=== PATIENT | male | born 1950 | race Caucasian/White ===

== ENCOUNTER 2019-07-05 14:49 | Outpatient (CLI) | payer MEDICARE ==
--- NOTE | 2019-07-05 16:51 | RAD ---
CERVICAL SPINE: 07/05/19 Five views. HISTORY: Neck pain. Cervical spondylosis. Lateral view obtained in neutral, flexion and extension. Postoperative changes are seen with anterior plate and screws transfixing C5, C6 and C7 with interbod y fusion at these levels. Mild anterolisthesis at C3-4 measured at 2 to 3 mm and minimal anterolisthesis at C4-5. Disc narrowin g at C7-T1 with mild anterolisthesis. Anterolisthesis at C3-4 does not significantly change with flexion or extension. Anterolisthesis at C 7-T1 is not significantly changed. IMPRESSION: Degenerative and postoperative changes of the cervical spine as described. POS: CHRIS
== END 2019-07-05 14:50 | disposition home or self-care (01) ==
LOC: TBSIIMAG 14:49
PROVIDERS: ATTEND Neurological Surgery
DX: M47.812 Spondylosis without myelopathy or radiculopathy, cervical region (principal); Z98.890 Other specified postprocedural states
CPT/HCPCS: 72050

== ENCOUNTER 2019-07-30 07:34 | Inpatient (IN) | payer MEDICARE ==
[2019-07-27 15:05] VITALS: BMI 28.3
[2019-07-30 08:39] LABS: Hemoglobin 14.3 g/dL (14.0-18.0); Mean Corpuscular HGB CONC 34.1 g/dL (32.0-36.0); Mean Corpuscular Hemoglobin 31.3 pg (27.0-31.0); Mean Corpuscular Volume 91.8 fL (78.0-98.0); Mean Platelet Volume 9.3 fL (7.4-10.4); Platelet Count 198 thou/uL (130-400); RBC Distribution Width 11.9 % (11.5-14.5); Red Blood Cell (RBC) Count 4.57 mill/uL (4.70-6.10); White Blood Cell (WBC) Count 3.9 thou/uL (4.8-10.8)
[2019-07-30 08:47] LABS: Anion Gap 11 mmol/L (10-20); BUN (Urea Nitrogen) 12 mg/dL (8.4-25.7); Calc. Creatinine Clearance 112 mL/min (70-130); Calcium 9.1 mg/dL (7.8-10.44); Carbon Dioxide 26 mmol/L (23-31); Chloride 107 mmol/L (98-107); Estimated GFR-MDRD 87; Glucose 94 mg/dL (80-115); Potassium 4.1 mmol/L (3.5-5.1); Sodium 140 mmol/L (136-145)
[2019-07-30] MEDS ORDERED: Sodium Chloride 0.9% 10 ML ONE (09:28)
[2019-07-30] MEDS ORDERED: Fentanyl 100 MCG/2 ML VIAL ONE ×2 (09:47→13:01)
[2019-07-30] MEDS ORDERED: Glycopyrrolate 0.2 MG/ML 5 ML SYRINGE ONE (10:59)
[2019-07-30] MEDS ORDERED: Dexamethasone 20 MG/5 ML VIAL ONE (10:59)
[2019-07-30] MEDS ORDERED: ePHEDrine/0.9% NaCl/PF SYRINGE 50 mg/10 ml ONE (10:59)
[2019-07-30] MEDS ORDERED: PROPOFOL 200 MG/20 ML VIAL ONE (10:59)
[2019-07-30] MEDS ORDERED: Lidocaine 1% PF 5 ML VIAL ONE (10:59)
[2019-07-30] MEDS ORDERED: Rocuronium Bromide 10 MG/ML (10ML VIAL) ONE (10:59)
[2019-07-30] MEDS ORDERED: Tamsulosin HCl 0.4 MG CAP ONE (12:19)
--- NOTE | 2019-07-30 13:18 | OP ---
DATE OF PROCEDURE: 07/30/2019 HEAD OF TRANSPORT LOGISTICS: Sebastian Tao PA-C PROCEDURES PERFORMED: Attempted removal of hardware, C5 through C7; expiration of spinal fusion, C5 through C7; anterior cervical diskectomy, C7-T1; interbody arthrodesis, intervertebral biomechanical device, local morselized autograft, and demineralized bone matrix. DESCRIPTION OF PROCEDURE: The patient was brought to the operating room and intubated. He was positioned supine with head in modest extension on gel-filled donut. A longitudinal incision was made in the right and dissected medial to the sternocleidomastoid muscle, identified the anterior cervical spine and the previous plate. We exposed the C7-T1 region. The plate was fully invested by bone. We debrided bone with a combination of rongeurs and a drill. Three of the screws were able to be removed with some difficulty. Two of the screws were sewn invested by bone that the bone could not be removed from the locking screw heads. We attempted eventually to drill this away, but eventually the morphology of the locking screw heads could not be maintained and the screws could not be removed. The left-sided C5 screw had an unusual angle as although there had been some migration and angulation. This was also invested by bone, but would have also been exceptionally difficult to remove. We next attempted to drill off the lower third of the plate between C6 and C7, but the drilling process created too much metallic fragmentation and heat and sparking and I aborted this rapidly. We next placed distraction from C7-T1 using operative microscope and microdissection techniques, completely removed the intervertebral disk dissecting below the post longitudinal ligament, decompressing the spinal cord to the level of the dura. A complete decompression was achieved. We next attempted to place a new plate at C7-T1, but there was not enough of the C7 body to access for adequate placement of a plate despite multiple attempts. We therefore aborted placing the plate at C7-T1. The wound was extensively irrigated. MAC hemostasis was secured. The wound was closed in anatomic layers over drain. Job ID: [id number]
[2019-07-30] MEDS ORDERED: Acetaminophen 650 MG Suppository PR PRN (13:50)
[2019-07-30] MEDS ORDERED: Promethazine HCl 25 MG/ML VIAL IM PRN (13:50)
[2019-07-30] MEDS ORDERED: diphenhydrAMINE 25 MG CAP PO PRN (13:50)
[2019-07-30] MEDS ORDERED: Ondansetron PF 4 MG/2 ML Vial IVP PRN (13:50)
[2019-07-30] MEDS ORDERED: Acetaminophen 325 MG TAB PO PRN (13:50)
[2019-07-30] MEDS ORDERED: Morphine 4 MG/ML VIAL SLOW IVP PRN (13:50)
[2019-07-30] MEDS ORDERED: diphenhydrAMINE 50 MG/ML VIAL IVP PRN (13:50)
[2019-07-30] MEDS ORDERED: Milk Of Magnesia 30 ML UDCUP PO PRN (13:50)
[2019-07-30] MEDS ORDERED: Promethazine HCl 12.5 MG SUPP PR PRN (13:50)
[2019-07-30] MEDS ORDERED: Prochlorperazine 10 MG/2 ML VIAL IM PRN (13:50)
[2019-07-30] MEDS ORDERED: Promethazine 25 MG TAB PO PRN (13:50)
[2019-07-30] MEDS ORDERED: HYDROcodone/Acetaminophen 10/325 mg Tablet PO PRN ×2 (13:50)
[2019-07-30] MEDS ORDERED: Mag-Al 1200 mg/1200 mg/30 ML UDCUP PO PRN (13:50)
[2019-07-30] MEDS ORDERED: Morphine 2 MG/ML SYRINGE SLOW IVP PRN (13:50)
[2019-07-30] MEDS: Sodium Chloride 0.9% 1,000 ML IV SCH (14:55)
[2019-07-30] MEDS: CEFAZOLIN 2 GM in Premix Bag 1 BAG IVPB SCH (16:26)
[2019-07-30] MEDS: tiZANidine HCl 4 MG TAB PO PRN (21:24)
[2019-07-31] MEDS: CEFAZOLIN 2 GM in Premix Bag 1 BAG IVPB SCH ×2 (00:32→08:21)
[2019-07-31] MEDS: Sodium Chloride 0.9% 1,000 ML IV SCH (04:04)
[2019-07-31] MEDS ORDERED: Tamsulosin HCl 0.4 MG CAP PO SCH (06:00)
[2019-07-31 07:21] VITALS: BP 134/76; TEMP 97.8
--- NOTE | 2019-07-31 08:54 | DIS ---
DATE OF ADMISSION: 07/30/2019 DATE OF DISCHARGE: 07/31/2019 The patient is a 69-year-old male, who was recently evaluated in our office for progressive degeneration and stenosis below his prior fusion at the level of C7 through T1. He underwent attempted removal of hardware and extension of his cervical fusion from C7 through T1. During the operation, we were unable to remove the hardware, therefore only PEEK device was placed following decompression at C7 through T1. The patient was subsequently placed in an Palmetto collar following the surgery, which he has been advised to wear at all times. He has also been provided a Moneta collar for showering. Overnight on postoperative day #1, the patient was feeling well. He had minimal pain. He had free active range of motion of all extremities. No focal motor weakness. His incision had remained clean, dry, and intact. His ROMELIA output from the bulb was only 35 mL of serosanguineous fluid overnight. His voice is mildly hoarse, but he was tolerating a p.o. diet without any difficulty. He had been ambulating in the hallway short distances and voiding without difficulty. Plan is for dismiss the patient to home on postoperative day #1. I have discussed home care and precautions. We will follow up with the patient in 2 weeks. Job ID: [id number]
[2019-07-31] MEDS ORDERED: Prevnar 13-Val Conj/PF 0.5 ML SYRINGE IM ONE (09:00)
[2019-07-31] MEDS: tiZANidine HCl 4 MG TAB PO PRN (09:55)
== END 2019-07-31 11:24 | disposition home or self-care (01) | DRG 519 ==
LOC: SURG A 07:34
PROVIDERS: ADMIT Neurological Surgery; ATTEND Neurological Surgery
PROC: 0RT50ZZ Resection of Cervicothoracic Vertebral Disc, Open Approach (ICD-10-PCS; principal; 2019-07-30)
PROC: 0RP104Z Removal of Internal Fixation Device from Cervical Vertebral Joint, Open Approach (ICD-10-PCS; 2019-07-30)
DX: M48.02 Spinal stenosis, cervical region (principal); M50.03 Cervical disc disorder with myelopathy, cervicothoracic region; M50.33 Other cervical disc degeneration, cervicothoracic region
CPT/HCPCS: 36415; 76000; 80048; 85027; 90471; 90670; C1776; G0009; J0690; J1100; J2001; J2405; J2704; J3010; J3490

== ENCOUNTER 2019-08-23 12:42 | Outpatient (CLI) | payer MEDICARE ==
--- NOTE | 2019-08-23 13:28 | RAD ---
3 views of the cervical spine Dictation: Cervical spondylosis Comparison prior exam dated July 05, 2019 FINDINGS: The ACDF spanning C5-C7 is unchanged. There has been interval placement of intervertebral d isc cage at C7-T1. Mild anterior translation of C3 on C4 is stable. Advanced disc degenerative disease at C4-5 and C3-4 is similar appearing. Lateral masses are symmetric. Lung apices are clear. IMPRESSION: Interval placement of intervertebral cage at C7-T1. ACDF of C5-C7 is similar appearing. S evere cervical spondylosis is stable. Mild anterolisthesis of C3 on C4 is stable.
== END 2019-08-23 12:43 | disposition home or self-care (01) ==
LOC: TBSIIMAG 12:42
PROVIDERS: ATTEND Neurological Surgery
DX: M47.12 Other spondylosis with myelopathy, cervical region (principal); M43.12 Spondylolisthesis, cervical region
CPT/HCPCS: 72040

== ENCOUNTER 2019-09-27 12:46 | Outpatient (CLI) | payer MEDICARE ==
--- NOTE | 2019-09-27 13:13 | CT ---
CT CERVICAL SPINE WITHOUT CONTRAST INDICATIONS: Cervical spondylosis and radiculopathy COMPARISON: Cervical spine radiograph dated August 23, 2019 and July 05, 2019 TECHNIQUE: Multiple CT images were obtained of the cervical spine without iv contrast. Axial, coronal, and sagi ttal reformatted images were constructed from the raw data. FINDINGS: Visualized posterior fossa and paravertebral soft tissues: Within normal limits Lung apices: Clear. Spinal alignment: Within normal limits. Spinal instrumentation or postsurgical change: Postsurgical change is stable to the comparison cervic al spinal radiograph dated August 23, 2019. There is intervertebral disc cage seen at C7-T1. There is mild anterior translation of C7 on T1. There is an ACDF plate spanning C5-C7 with solid osseous in corporation of interbody bone graft. Craniocervical junction and C1-C2: Appears within normal limits. At C2-C3, there is advanced left-sided facet osteoarthrosis inducing moderate to severe left osseous neural foraminal narrowing at C2-C3.. At C3-C4, there is slight anterior translation of C3 on C4. There is advanced facet osteoarthrosis bi laterally, left greater than right. There are prominent uncal vertebral hypertrophic changes. There is severe left and moderate right neural foraminal narrowing. At C4-C5, there is a broad-based disc osteophyte complex. There is advanced right and moderate left f acet joint degenerative change. There is uncovertebral hypertrophy. Also displaced to severe right and moderate left neural foraminal narrowing. There is at least mild osseous central canal narrowing due to the disc osteophyte complex at C4-5. At C5-C6, there is prominent facet hypertrophy inducing mild to moderate right and mild left neural f oraminal narrowing At C6-C7, there is no appreciable central canal or neuroforaminal narrowing. At C7-T1, there is no appreciable central canal or neuroforaminal narrowing. IMPRESSION: 1. Postoperative cervical spine. Solid osseous incorporation of ACDF spanning C5-C7. Intervertebral disc cage at C7-T1. Slight anterior translation of C7 on T1. This is stable on the comparison radiographs. 2. Advanced multilevel cervical spondylosis with multilevel neural foraminal narrowing with mild cent ral canal narrowing seen at C4-5.
== END 2019-09-27 12:47 | disposition home or self-care (01) ==
LOC: TBSIIMAG 12:46
PROVIDERS: ATTEND Neurological Surgery
DX: M47.22 Other spondylosis with radiculopathy, cervical region (principal); M48.02 Spinal stenosis, cervical region; Z98.1 Arthrodesis status
CPT/HCPCS: 72125

== ENCOUNTER 2019-11-09 13:19 | Outpatient (CLI) | payer MEDICARE ==
--- NOTE | 2019-11-09 13:57 | RAD ---
EXAM: XR Cerv Sp Ap Lat STANDARD PROVIDED CLINICAL HISTORY: Cervical spondylosis. Follow-up postsurgical change. COMPARISON: 08/23/2019. FINDINGS: Again noted is an anterior plate spanning C5-C7 with anterior screws seen in C5 and C6. Intradiscal p rostheses are noted at these levels. Intradiscal prosthesis is also again seen at the C7-T1 level with suggestion of slight anterolisthesis of C7 on T1 similar to prior study measuring approximately 3 to 4 mm. Trace anterolisthesis of C3 on C4 is also again seen. The vertebral body heights are within normal limits. Facet degenerative changes are seen greatest at the C4-5 level on the right. Pr evertebral soft tissues have a normal appearance. Surgical clips again seen just to the right and anterior to the C7 vertebral body. IMPRESSION: Postsurgical and degenerative changes of the cervical spine with stable slight anterolisthesis of C3 on C4 and mild anterolisthesis of C7 on T1.
== END 2019-11-09 13:20 | disposition home or self-care (01) ==
LOC: TBSIIMAG 13:19
PROVIDERS: ATTEND Neurological Surgery
DX: M47.812 Spondylosis without myelopathy or radiculopathy, cervical region (principal); M43.12 Spondylolisthesis, cervical region; M43.13 Spondylolisthesis, cervicothoracic region; Z98.890 Other specified postprocedural states
CPT/HCPCS: 72040

== ENCOUNTER 2020-03-17 09:48 | Outpatient (CLI) | payer MEDICARE ==
--- NOTE | 2020-03-17 10:04 | RAD ---
EXAM: 3 views of the cervical spine HISTORY: Follow-up neck surgery from July 2019 COMPARISON: 11/09/2019, 07/05/2019 FINDINGS: AP, lateral, and open mouth odontoid views of the cervical spine shows the patient is statu s post anterior fusion of C5-C7. A disc spacer is seen within the C7/T1 disc space. There is stable grade 1 anterolisthesis of C7 on T1. The C7 screws are still absent. No prevertebral soft tissue swel ling is seen. Small osteophytes are seen in the upper cervical spine. IMPRESSION: Stable postsurgical changes of the lower lumbosacral spine.
== END 2020-03-17 09:49 | disposition home or self-care (01) ==
LOC: TBSIIMAG 09:48
PROVIDERS: ATTEND Neurological Surgery
DX: M54.12 Radiculopathy, cervical region (principal); Z98.1 Arthrodesis status
CPT/HCPCS: 72040

== ENCOUNTER 2022-05-31 08:59 | Outpatient (CLI) | payer MEDICARE | END 2022-05-31 09:00 | disposition home or self-care (01) | LOC: SCSCT 08:59 | PROVIDERS: ATTEND Family Medicine | DX: M48.02 Spinal stenosis, cervical region (principal); M47.812 Spondylosis without myelopathy or radiculopathy, cervical region; M47.813 Spondylosis without myelopathy or radiculopathy, cervicothoracic region; Z98.1 Arthrodesis status | CPT/HCPCS: 72125 ==